=== PATIENT | female | born 1960 | race African-American/Black ===

== ENCOUNTER 2016-09-25 12:53 | Inpatient (IN) | payer OTHER ==
[2016-09-25 13:22] VITALS: BMI 28.3
--- NOTE | 2016-09-25 19:16 | HP ---
CIWA Score - CIWA Score Nausea/Vomitin Muscle Tremors: 3 Anxiety: 3 Agitation: 3 Paroxysmal Sweats: 2 Orientation: 1-Uncertain about Date Tacttile Disturbances: 2-Mild Itch/Numbness/Burn Auditory Disturbances: 2-Mild Harshness/Frighten Visual Disturbances: 2-Mild Sensitivity Headache: 2-Mild CIWA-Ar Total Score: 23 Admission ROS BHS - HPI Chief Complaint: i need help to stop drinking alcohol and cocaine Allergies/Adverse Reactions: Allergies Allergy/AdvReac Type Severity Reaction Status Date / Time peanut Allergy Severe Verified 04/21/12 23:34 tuberculin, purified protein Allergy Severe Swelling Verified 04/21/12 23:34 deriva [Tuberculin,Purif.Prot.Deriv.] No Known Drug Allergies Allergy Verified 04/22/12 11:08 History of Present Illness: this 55 years old female with alcohol and cocaine dependence,seeking detox,last treatment 2012 unknown location never been in detox before ptsd nicotine dependence type 2 dm Exam Limitations: No Limitations - Ebola screening Have you traveled outside of the country in the last 21 days: No Have you had contact with anyone from an Ebola affected area: No Have you been sick,other than usual withdrawal symptoms: No Do you have a fever: No - Review of Systems Constitutional: Loss of Appetite, Malaise, Night Sweats, Changes in sleep, Weakness, Unintentional Wgt. Loss EENT: reports: Nose Congestion Respiratory: reports: No Symptoms reported Cardiac: reports: No Symptoms Reported GI: reports: Diarrhea, Nausea, Vomiting, Abdominal cramping : reports: No Symptoms Reported Musculoskeletal: reports: Back Pain, Joint Pain Integumentary: reports: Dryness Neuro: reports: Headache, Tremors Endocrine: reports: No Symptoms Reported Hematology: reports: Other (hiv) Psychiatric: reports: Anxious, Depressed, other (ptsd) Patient History - Patient Medical History Hx Anemia: No Hx Asthma: No Hx Chronic Obstructive Pulmonary Disease (COPD): No Hx Cancer: No Hx Cardiac Disorders: No Hx Congestive Heart Failure: No Hx Hypertension: No Hx Hypercholesterolemia: No Hx Pacemaker: No HX Cerebrovascular Accident: No Hx Seizures: No Hx Dementia: No Hx Diabetes: No Hx Gastrointestinal Disorders: No Hx Liver Disease: No Hx Genitourinary Disorders: No Hx Sexually Transmitted Disorders: No Hx Renal Disease (ESRD): No Hx Thyroid Disease: No Hx Human Immunodeficiency Virus (HIV): Yes (truvada/d,isentress 400mg bid since 2000) Hx Hepatitis C: Yes Hx Depression: Yes (anxiety) Hx Suicide Attempt: No Hx Bipolar Disorder: No Hx Schizophrenia: No Other Medical History: ptsd,no suicidal,no homicidal - Patient Surgical History Past Surgical History: Yes Hx Neurologic Surgery: No Hx Cataract Extraction: No Hx Cardiac Surgery: No Hx Lung Surgery: No Hx Breast Surgery: No Hx Breast Biopsy: No Hx Abdominal Surgery: No Hx Appendectomy: No Hx Cholecystectomy: No Hx Genitourinary Surgery: No Hx Section: Yes (last 1994) Anesthesia Reaction: No - PPD History Previous Implant?: Yes Documented Results: Negative w/o proof Implanted On Prior R Admission?: No PPD to be Administered?: Yes - Reproductive History Patient is a Female of Child Bearing Age (11 -55 yrs old): Yes Patient : No - Smoking Cessation Smoking history: Current every day smoker Aproximately how many cigarettes per day: 3 Hx Chewing Tobacco Use: No Initiated information on smoking cessation: Yes 'Breaking Loose' booklet given: 09/25/16 - Substance & Tx. History Hx Alcohol Use: Yes Hx Substance Use: Yes Substance Use Type: Alcohol, Cocaine Hx Substance Use Treatment: Yes (2013 acility unknown) - Substances Abused Crack Route: Smoking Frequency: 1-3 times last 30 days Amount used: $300 Age of first use: 21 Date of Last Use: 09/23/16 Alcohol-beer Route: Oral Frequency: 3-6 times per week Amount used: 1 case Age of first use: 12 Date of Last Use: 09/24/16 Family Disease History - Family Disease History Family History: Denies Admission Physical Exam [facility] - Vital Signs Vital Signs: Vital Signs - 24 hr 09/25/16 13:14 Temperature 96.4 F L Pulse Rate 95 H Respiratory 20 Rate Blood Pressure 119/68 - Physical General Appearance: Yes: Moderate Distress, Tremorous, Irritable, Sweating, Anxious HEENTM: Yes: Normal ENT Inspection, KATIE, Pharynx Normal Respiratory: Yes: Lungs Clear, Normal Breath Sounds Neck: Yes: Within Normal Limits, Supple, Trachea in good position Breast: Yes: Breast Exam Deferred Cardiology: Yes: Regular Rhythm, Regular Rate, S1, S2, Edema Abdominal: Yes: Within Normal Limits, Normal Bowel Sounds, Non Tender, Soft Genitourinary: Yes: Within Normal Limits Back: Yes: Within Normal Limits, Normal Inspection, Muscle Spasm Musculoskeletal: Yes: full range of Motion, Back pain, Muscle Pain Extremities: Yes: Normal Range of Motion, Tremors Neurological: Yes: Within Normal Limits, basketball player II-XII NML intact, Fully Oriented, Alert, Motor Strength 5/5 Integumentary: Yes: Dry Lymphatic: Yes: Within Normal Limits - Diagnostic (1) Alcohol dependence with uncomplicated withdrawal Current Visit: Yes Status: Acute (2) Cocaine dependence Current Visit: No Status: Active (3) Human immunodeficiency virus infection Current Visit: No Status: Active (4) Nicotine dependence Current Visit: Yes Status: Acute (5) PTSD (post-traumatic stress disorder) Current Visit: Yes Status: Acute (6) Bipolar disorder Current Visit: Yes Status: Acute (7) Weight loss Current Visit: Yes Status: Acute (8) IDDM (insulin dependent diabetes mellitus) Current Visit: Yes Status: Acute Cleared for Admission S - Detox or Rehab [facility] Level of Care: Medically Managed Detox Regimen/Protocol: Librium [facility] Breath Alcohol Content Breath Alcohol Content: 0 Urine Pregancy Test - Result Urine Test Results: Negative- NO Line Present Urine Drug Screen - Results Drug Screen Negative: No Urine Drug Screen Results: SYL-Cocaine
[2016-09-25] MEDS ORDERED: hydrOXYzine PAMOATE 25 MG CAPSULE (FP) PO PRN (19:36)
[2016-09-25] MEDS ORDERED: ACETAMINOPHEN 325 MG TABLET (FP) PO PRN (19:36)
[2016-09-25] MEDS ORDERED: MENTHOL/PHENOL 1 EACH UD MM PRN (19:36)
[2016-09-25] MEDS ORDERED: LOPERAMIDE HCL 2 MG CAPSULE PO PRN (19:36)
[2016-09-25] MEDS ORDERED: MAGNESIUM HYDROX 2400MG/30ML ORAL SUSPENSION 30 ML CUP PO PRN (19:36)
[2016-09-25] MEDS ORDERED: MAG HYDROX/AL HYDROX/SIMETH 30 ML UNIT-DOSE CUP PO PRN (19:36)
[2016-09-25] MEDS ORDERED: IBUPROFEN 400 MG TABLET (FP) PO PRN (19:36)
[2016-09-25] MEDS ORDERED: chlordiazePOXIDE HCL 25 MG CAPSULE PO ONE (19:36)
[2016-09-25] MEDS ORDERED: guaiFENesin/D-METHORPHAN HB 10 ML UNIT-DOSE CUPS PO PRN (19:36)
[2016-09-25] MEDS ORDERED: diphenhydrAMINE HCL 50 MG CAPSULE PO PRN (19:36)
[2016-09-25] MEDS ORDERED: chlordiazePOXIDE HCL 25 MG CAPSULE PO PRN (19:36)
[2016-09-25] MEDS ORDERED: MAGNESIUM CITRATE 300 ML BOTTLE PO PRN (19:36)
[2016-09-25] MEDS ORDERED: P-EPHED 60MG/TRIPROLIDI 2.5MG TABLET PO PRN (19:36)
[2016-09-25] MEDS: INSULIN (NOVOLOG) ASPART 100 UNITS/ML 10ML VIAL SQ SCH (21:33)
[2016-09-25] MEDS: THIAMINE HCL 100 MG TABLET (FP) PO SCH (22:04)
[2016-09-25] MEDS: RALTEGRAVIR POTASSIUM 400 MG TAB PO SCH (22:04)
[2016-09-25] MEDS: chlordiazePOXIDE HCL 25 MG CAPSULE PO SCH (22:04)
[2016-09-25 23:03] LABS: URINE APPEARANCE SLCLOUDY; URINE BILIRUBIN NEGATIVE (NEGATIVE); URINE BLOOD NEGATIVE (NEGATIVE); URINE COLOR YELLOW; URINE GLUCOSE (UA) NEGATIVE (NEGATIVE); URINE KETONE TRACE (NEGATIVE); URINE LEUK ESTERASE NEGATIVE (NEGATIVE); URINE NITRITE NEGATIVE (NEGATIVE); URINE PROTEIN NEGATIVE (NEGATIVE); URINE UROBILINOGEN NEGATIVE mg/dL (0.2-1.0)
[2016-09-26] MEDS: chlordiazePOXIDE HCL 25 MG CAPSULE PO SCH ×4 (06:37→22:07)
[2016-09-26] MEDS: INSULIN (NOVOLOG) ASPART 100 UNITS/ML 10ML VIAL SQ SCH ×3 (07:51→17:00)
[2016-09-26 10:01] LABS: ALBUMIN 3.2 g/dl (3.4-5.0); ANION GAP 8 (8-16); CALCIUM 9.5 mg/dL (8.5-10.1); CO2 25 mmol/L (21-32); CREATININE 0.9 mg/dL (0.55-1.02); GLUCOSE,RANDOM 117 mg/dL (74-106); SGOT/AST 37 U/L (15-37); SGPT/ALT 47 U/L (12-78)
[2016-09-26 10:03] LABS: ALK PHOS 99 U/L (45-117); BILIRUBIN,TOTAL 0.4 mg/dL (0.2-1.0); TOT PROT 6.6 g/dl (6.4-8.2)
[2016-09-26 10:04] LABS: MCH 32.6 pg (25.7-33.7); MCHC 33.6 g/dl (32.0-36.0); MEAN PLT VOLUME 9.4 fl (7.5-11.1); PLATELET COUNT 243 K/MM3 (134-434); RDW 13.4 % (11.6-15.6)
[2016-09-26] MEDS: RALTEGRAVIR POTASSIUM 400 MG TAB PO SCH ×2 (10:47→22:06)
[2016-09-26] MEDS: PRENATAL VITAMINS W/ FOLIC ACID TABLET (FP) PO SCH (10:47)
[2016-09-26] MEDS: EMTRICITABINE 200MG/TENOFOVIR 300MG PO SCH (10:48)
--- NOTE | 2016-09-26 10:50 | PN ---
S CIWA - CIWA Score Nausea/Vomitin Muscle Tremors: 3 Anxiety: 3 Agitation: 2 Paroxysmal Sweats: 1-Minimal Palms Moist Orientation: 0-Oriented Tacttile Disturbances: 1-Very Mild Itch/Numbness Auditory Disturbances: 1-Very Mild Visual Disturbances: 1-Very Mild Sensitivity Headache: 2-Mild CIWA-Ar Total Score: 17 BHS Progress Note (SOAP) Subjective: ALERT,IRRITABLE,ANXIOUS,INTERRUPTED SLEEP,TREMOR,FEEL WEAK Objective: 09/26/16 10:48 Vital Signs Temperature 97.3 F L 09/26/16 06:19 Pulse Rate 69 09/26/16 06:19 Respiratory Rate 18 09/26/16 06:19 Blood Pressure 125/70 09/26/16 06:19 O2 Sat by Pulse Oximetry (%) 09/26/16 10:49 Assessment: 09/26/16 10:48 EKG NSR,NORMAL ECG 09/26/16 09/26/16 07:00 07:00 WBC 6.0 RBC 4.17 Hgb 13.6 Hct 40.4 MCV 97.0 H MCHC 33.6 RDW 13.4 Plt Count 243 Sodium 141 Potassium 4.1 Chloride 108 H Carbon Dioxide 25 Anion Gap 8 BUN 9 Creatinine 0.9 LABS PENDING 09/26/16 10:49 WITHDRAWAL SYMPTOM 09/26/16 10:49 Plan: CONTINUE DETOX
[2016-09-26] MEDS ORDERED: INSULIN (NOVOLOG) ASPART 100 UNITS/ML 10ML VIAL ONE (11:35)
--- NOTE | 2016-09-26 12:32 | CONSULT ---
[facility] Psychiatric Consult - Data Date of interview: 09/26/16 Admission source: [facility] Identifying data: First admission to [facility] for this 55 y/o AA female seeking detox treatment on for alcohol and cocaine dependence.Patient is single,a mother of three,domiciled (transitional housing),unemployed and supported on SSI benefits. Substance Abuse History: Discussed in this session.Patient confirms the following data : Smoking Cessation. Smoking history: Current every day smoker. Aproximately how many cigarettes per day: 3. Hx Chewing Tobacco Use: No. Initiated information on smoking cessation: Yes. 'Breaking Loose' booklet given: 09/25/16. - Substance & Tx. History. Hx Alcohol Use: Yes. Hx Substance Use: Yes. Substance Use Type: Alcohol, Cocaine. Hx Substance Use Treatment: Yes (2013 acility unknown). - Substances Abused. Crack. Route: Smoking. Frequency: 1-3 times last 30 days. Amount used: $300. Age of first use: 21. Date of Last Use: 09/23/16. Alcohol-beer. Route: Oral. Frequency : 3-6 times per week. Amount used: 1 case. Age of first use: 12. Date of Last Use: 09/24/16 Medical History: HIV infection since 2000 (on ART medications),hepatitis C and arthritis. Psychiatric History: Patient denies. Physical/Sexual Abuse/Trauma History: No reported history of abuse. Additional Comment: Urine Drug Screen Results: SYL-Cocaine.Noted. Mental Status Exam - Mental Status Exam Alert and Oriented to: Time, Place, Person Cognitive Function: Good Mood: Hopeful, Euthymic Affect: Normal Range Patient Behavior: Appropriate, Cooperative (overfriendly) Speech Pattern: Clear Voice Loudness: Normal Thought Process: Goal Oriented Thought Disorder: Not Present Hallucinations: Denies Suicidal Ideation: Denies Homicidal Ideation: Denies Insight/Judgement: Poor Sleep: Fair Appetite: Good Muscle strength/Tone: Normal Gait/Station: Other (walks with a stooped posture.Complains of pain in plantar areas) Psychiatric Findings - Problem List ([place] 1, 2,3) (1) Alcohol dependence with uncomplicated withdrawal Current Visit: Yes Status: Acute (2) Cocaine dependence Current Visit: Yes Status: Active (3) Nicotine dependence Current Visit: Yes Status: Acute (4) Substance induced mood disorder Current Visit: Yes Status: Acute (5) PTSD (post-traumatic stress disorder) Current Visit: No Status: Chronic Comment: History. (6) Bipolar disorder Current Visit: No Status: Chronic Comment: As per records. (7) IDDM (insulin dependent diabetes mellitus) Current Visit: Yes Status: Chronic (8) Human immunodeficiency virus infection Current Visit: Yes Status: Chronic - Initial Treatment Plan Initial Treatment Plan: Psychoeducation.Detoxification.Observation.
[2016-09-26] MEDS: THIAMINE HCL 100 MG TABLET (FP) PO SCH (22:06)
[2016-09-27] MEDS: chlordiazePOXIDE HCL 25 MG CAPSULE PO SCH ×3 (06:07→17:12)
[2016-09-27] MEDS: metFORMIN HCL 500 MG TABLET (FP) PO SCH ×2 (06:10→17:11)
--- NOTE | 2016-09-27 10:38 | PN ---
S CIWA - CIWA Score Nausea/Vomitin Muscle Tremors: 3 Anxiety: 3 Agitation: 2 Paroxysmal Sweats: No Perspiration Orientation: 0-Oriented Tacttile Disturbances: 1-Very Mild Itch/Numbness Auditory Disturbances: 1-Very Mild Visual Disturbances: 1-Very Mild Sensitivity Headache: 2-Mild CIWA-Ar Total Score: 16 S Progress Note (SOAP) Subjective: ALERT,IRRITABLE,ANXIOUS,INTERRUPTED SLEEP,TREMOR Objective: 09/27/16 10:36 Vital Signs Temperature 96.3 F L 09/27/16 06:05 Pulse Rate 69 09/27/16 06:05 Respiratory Rate 18 09/27/16 06:05 Blood Pressure 137/79 09/27/16 06:05 O2 Sat by Pulse Oximetry (%) Laboratory Last Values WBC 6.0 K/mm3 (4.0-10.0) 09/26/16 07:00 RBC 4.17 M/mm3 (3.60-5.2) 09/26/16 07:00 Hgb 13.6 GM/dL (10.7-15.3) 09/26/16 07:00 Hct 40.4 % (32.4-45.2) 09/26/16 07:00 MCV 97.0 fl (80-96) H 09/26/16 07:00 MCH 32.6 pg (25.7-33.7) 09/26/16 07:00 MCHC 33.6 g/dl (32.0-36.0) 09/26/16 07:00 RDW 13.4 % (11.6-15.6) 09/26/16 07:00 Plt Count 243 K/MM3 (134-434) 09/26/16 07:00 MPV 9.4 fl (7.5-11.1) 09/26/16 07:00 Sodium 141 mmol/L (136-145) 09/26/16 07:00 Potassium 4.1 mmol/L (3.5-5.1) 09/26/16 07:00 Chloride 108 mmol/L (98-107) H 09/26/16 07:00 Carbon Dioxide 25 mmol/L (21-32) 09/26/16 07:00 Anion Gap 8 (8-16) 09/26/16 07:00 BUN 9 mg/dL (7-18) 09/26/16 07:00 Creatinine 0.9 mg/dL (0.55-1.02) 09/26/16 07:00 Creat Clearance w eGFR > 60 (>60) 09/26/16 07:00 POC Glucometer 146 UNITS (()) 09/26/16 16:32 Random Glucose 117 mg/dL (74-106) H 09/26/16 07:00 Calcium 9.5 mg/dL (8.5-10.1) 09/26/16 07:00 Total Bilirubin 0.4 mg/dL (0.2-1.0) 09/26/16 07:00 AST 37 U/L (15-37) 09/26/16 07:00 ALT 47 U/L (12-78) 09/26/16 07:00 Alkaline Phosphatase 99 U/L (45-117) 09/26/16 07:00 Total Protein 6.6 g/dl (6.4-8.2) 09/26/16 07:00 Albumin 3.2 g/dl (3.4-5.0) L 09/26/16 07:00 Urine Color Yellow 09/25/16 22:50 Urine Appearance Slcloudy 09/25/16 22:50 Urine pH 5.0 (5.0-8.0) 09/25/16 22:50 Ur Specific [place] 1.025 (1.005-1.025) 09/25/16 22:50 Urine Protein Negative (NEGATIVE) 09/25/16 22:50 Urine Glucose (UA) Negative (NEGATIVE) 09/25/16 22:50 Urine Ketones Trace (NEGATIVE) H 09/25/16 22:50 Urine Blood Negative (NEGATIVE) 09/25/16 22:50 Urine Nitrite Negative (NEGATIVE) 09/25/16 22:50 Urine Bilirubin Negative (NEGATIVE) 09/25/16 22:50 Urine Urobilinogen Negative mg/dL (0.2-1.0) 09/25/16 22:50 Ur Leukocyte Esterase Negative (NEGATIVE) 09/25/16 22:50 RPR Titer Nonreactive (NONREACTIVE) 09/26/16 07:00 Assessment: 09/27/16 10:37 WITHDRAWAL SYMPTOM Plan: CONTINUE DETOX,BGM MONITORING,METFORMIN 500 MGS PO BID
[2016-09-27] MEDS: RALTEGRAVIR POTASSIUM 400 MG TAB PO SCH ×2 (10:55→22:03)
[2016-09-27] MEDS: EMTRICITABINE 200MG/TENOFOVIR 300MG PO SCH (10:55)
[2016-09-27] MEDS: PRENATAL VITAMINS W/ FOLIC ACID TABLET (FP) PO SCH (10:55)
[2016-09-27] MEDS: chlordiazePOXIDE 5 MG CAPSULE PO SCH (22:03)
[2016-09-27] MEDS: THIAMINE HCL 100 MG TABLET (FP) PO SCH (22:03)
[2016-09-28] MEDS: chlordiazePOXIDE 5 MG CAPSULE PO SCH ×3 (05:55→17:31)
[2016-09-28] MEDS: metFORMIN HCL 500 MG TABLET (FP) PO SCH ×2 (06:02→17:31)
--- NOTE | 2016-09-28 08:10 | EKG ---
Test Reason : Blood Pressure : / mmHG Vent. Rate : 066 BPM Atrial Rate : 066 BPM P-R Int : 154 ms QRS Dur : 072 ms QT Int : 424 ms P-R-T Axes : 063 050 042 degrees QTc Int : 444 ms NORMAL SINUS RHYTHM NORMAL ECG NO PREVIOUS ECGS AVAILABLE Confirmed by TRINY TREVIÑO, ANGEL LUIS ([id number]) on 09/28/2016 8:09:44 AM Referred By: Taran Burnham Confirmed By:ANGEL LUIS AGOSTO MD
[2016-09-28] MEDS: PRENATAL VITAMINS W/ FOLIC ACID TABLET (FP) PO SCH (10:08)
[2016-09-28] MEDS: RALTEGRAVIR POTASSIUM 400 MG TAB PO SCH (10:09)
[2016-09-28] MEDS: EMTRICITABINE 200MG/TENOFOVIR 300MG PO SCH (10:10)
--- NOTE | 2016-09-28 10:10 | PN ---
S Progress Note (SOAP) Subjective: ALERT,IRRITABLE,ANXIOUS,INTERRUPTED SLEEP Objective: 09/28/16 10:09 Vital Signs Temperature 97.9 F 09/28/16 06:22 Pulse Rate 66 09/28/16 06:22 Respiratory Rate 16 09/28/16 06:22 Blood Pressure 118/86 09/28/16 06:22 O2 Sat by Pulse Oximetry (%) Assessment: 09/28/16 10:09 WITHDRAWAL SYMPTOM Plan: CONTINUE DETOX,DISCHARGE IN AM
--- NOTE | 2016-09-28 10:30 | PN ---
[facility] Progress Note Note: PATIENT STATED SHE IS ON COMPLERA FOR HIV,WILL D/C ISENTRESS AND TRUVADA,TO GIVE COMPLERA DAILY
[2016-09-28] MEDS ORDERED: ONDANSETRON *ODT* 4 MG TABLET SL PRN (16:29)
[2016-09-28] MEDS: THIAMINE HCL 100 MG TABLET (FP) PO SCH (22:07)
[2016-09-28] MEDS: chlordiazePOXIDE HCL 10 MG CAPSULE PO SCH (23:31)
[2016-09-29] MEDS: chlordiazePOXIDE HCL 10 MG CAPSULE PO SCH ×2 (05:43→10:32)
[2016-09-29] MEDS: metFORMIN HCL 500 MG TABLET (FP) PO SCH (07:35)
[2016-09-29] MEDS ORDERED: EMTRICITAB/RILPIVIRINE/TENOFOV 1 EACH TABLET PO SCH (08:00)
--- NOTE | 2016-09-29 08:41 | DS ---
[facility] Detox Discharge Summary Admission Date: 09/25/16 Discharge Date: 09/29/16 - History Present History: Alcohol Dependence, Cocaine Dependence Additional Comments: follow up with after [facility] program as arrangement Pertinent Past History: hiv type 2 dm weight loss bipolar disorder nicotine dependence ptsd - Physical Exam Results Vital Signs: Vital Signs Temperature 97.7 F 09/29/16 06:22 Pulse Rate 75 09/29/16 06:22 Respiratory Rate 18 09/29/16 06:22 Blood Pressure 125/69 09/29/16 06:22 O2 Sat by Pulse Oximetry (%) Pertinent Admission Physical Exam Findings: withdrawal symptom - Treatment Hospital Course: Detox Protocol Followed, Detoxed Safely, Responded well, Discharged Condition Good, Rehab Referral Accepted Patient has Accepted a [facility] Referral [facility] - Medication Discharge Medications: Ambulatory Orders Emtricitabine/Tenofovir [Truvada Tablet] 1 each PO DAILY 04/21/12 Gabapentin [Neurontin] 100 mg PO DAILY 04/21/12 Insulin Glargine,Hum.rec.anlog [Lantus Solostar PEN] 0 units SQ HS 04/21/12 Raltegravir [Isentress] 400 mg PO BID 04/21/12 Trazodone HCl [Desyrel] 150 mg PO HS 04/21/12 Metformin HCl [Glucophage -] 500 mg PO BID 09/26/16 - Diagnosis (1) Alcohol dependence with uncomplicated withdrawal Current Visit: Yes Status: Acute (2) Cocaine dependence Current Visit: Yes Status: Active (3) Human immunodeficiency virus infection Current Visit: Yes Status: Chronic (4) Nicotine dependence Current Visit: Yes Status: Acute (5) PTSD (post-traumatic stress disorder) Current Visit: No Status: Chronic (6) Bipolar disorder Current Visit: No Status: Chronic (7) Weight loss Current Visit: Yes Status: Acute (8) DM2 (diabetes mellitus, type 2) Current Visit: Yes Status: Chronic - AMA Did Patient Leave Against Medical Advice: No
[2016-09-29 09:47] VITALS: BP 122/76; PULSE 83; TEMP 95.9
[2016-09-29] MEDS: PRENATAL VITAMINS W/ FOLIC ACID TABLET (FP) PO SCH (10:28)
== END 2016-09-29 12:25 | disposition other institution (70) | DRG 774 ==
LOC: YASAS 12:53 → Y6N 18:10
PROVIDERS: ADMIT Internal Medicine; ATTEND Internal Medicine
PROC: HZ2ZZZZ Detoxification Services for Substance Abuse Treatment (ICD-10-PCS; principal; 2016-09-25)
DX: F10.230 Alcohol dependence with withdrawal, uncomplicated (principal); F14.20 Cocaine dependence, uncomplicated; F17.210 Nicotine dependence, cigarettes, uncomplicated; F43.10 Post-traumatic stress disorder, unspecified; F31.9 Bipolar disorder, unspecified; Z21 Asymptomatic human immunodeficiency virus [HIV] infection status; E11.9 Type 2 diabetes mellitus without complications; Z87.898 Personal history of other specified conditions; Z79.4 Long term (current) use of insulin; Z79.84 Long term (current) use of oral hypoglycemic drugs; Z91.010 Allergy to peanuts; Z91.018 Allergy to other foods
CPT/HCPCS: 36415; 71020-TC; 80053; 81003; 85027; 86593; 93005; 93010

== ENCOUNTER 2016-09-29 12:25 | Inpatient (IN) | payer OTHER ==
[2016-09-29 13:26] VITALS: BMI 29.2
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
[2016-09-29] MEDS ORDERED: NICOTINE POLACRILEX 2 MG GUM BUC PRN (15:44)
[2016-09-29] MEDS ORDERED: IBUPROFEN 400 MG TABLET (FP) PO PRN (15:44)
[2016-09-29] MEDS ORDERED: ACETAMINOPHEN 325 MG TABLET (FP) PO PRN (15:44)
[2016-09-29] MEDS ORDERED: diphenhydrAMINE HCL 50 MG CAPSULE PO PRN (15:44)
[2016-09-29] MEDS ORDERED: MENTHOL/PHENOL 1 EACH UD MM PRN (15:44)
[2016-09-29] MEDS ORDERED: MAGNESIUM HYDROX 2400MG/30ML ORAL SUSPENSION 30 ML CUP PO PRN (15:44)
[2016-09-29] MEDS ORDERED: MAG HYDROX/AL HYDROX/SIMETH 30 ML UNIT-DOSE CUP PO PRN (15:44)
[2016-09-29] MEDS ORDERED: guaiFENesin/D-METHORPHAN HB 10 ML UNIT-DOSE CUPS PO PRN (15:44)
[2016-09-29] MEDS ORDERED: P-EPHED 60MG/TRIPROLIDI 2.5MG TABLET PO PRN (15:44)
[2016-09-29] MEDS ORDERED: LOPERAMIDE HCL 2 MG CAPSULE PO PRN (15:44)
[2016-09-29] MEDS ORDERED: MAGNESIUM CITRATE 300 ML BOTTLE PO PRN (15:44)
--- NOTE | 2016-09-29 15:47 | HP ---
[facility] Rehab Assess/Revision - Admission History Admitted to Rehab [facility] Date of Admission to Rehab: 09/29/16 - Vital signs Vital Signs: Vital Signs Period Temp Pulse Resp BP Sys/Reza Pulse Ox Last 24 Hr 97.8 F-97.8 F 80-80 18-18 127-127/83-83 - Findings Detox History & Physical reviewed: Yes Concur with findings: Yes
[2016-09-29] MEDS: THIAMINE HCL 100 MG TABLET (FP) PO SCH (21:24)
[2016-09-30] MEDS: metFORMIN HCL 500 MG TABLET (FP) PO SCH ×2 (06:21→17:10)
[2016-09-30] MEDS: EMTRICITAB/RILPIVIRINE/TENOFOV 1 EACH TABLET PO SCH (10:55)
[2016-09-30] MEDS: PRENATAL VITAMINS W/ FOLIC ACID TABLET (FP) PO SCH (10:55)
[2016-09-30] MEDS: THIAMINE HCL 100 MG TABLET (FP) PO SCH (22:40)
[2016-10-01] MEDS: metFORMIN HCL 500 MG TABLET (FP) PO SCH ×2 (06:36→17:02)
[2016-10-01] MEDS: EMTRICITAB/RILPIVIRINE/TENOFOV 1 EACH TABLET PO SCH (07:43)
[2016-10-01] MEDS: PRENATAL VITAMINS W/ FOLIC ACID TABLET (FP) PO SCH (10:19)
[2016-10-01] MEDS: THIAMINE HCL 100 MG TABLET (FP) PO SCH (21:29)
[2016-10-02] MEDS: metFORMIN HCL 500 MG TABLET (FP) PO SCH ×2 (06:32→16:58)
[2016-10-02] MEDS: EMTRICITAB/RILPIVIRINE/TENOFOV 1 EACH TABLET PO SCH (07:36)
[2016-10-02] MEDS: PRENATAL VITAMINS W/ FOLIC ACID TABLET (FP) PO SCH (10:15)
[2016-10-02] MEDS: THIAMINE HCL 100 MG TABLET (FP) PO SCH (21:25)
[2016-10-03] MEDS ORDERED: PT OWN MED DRAWER 7, Y5N ONE ×2 (05:51→08:48)
[2016-10-03] MEDS: metFORMIN HCL 500 MG TABLET (FP) PO SCH ×2 (06:39→16:35)
[2016-10-03] MEDS: EMTRICITAB/RILPIVIRINE/TENOFOV 1 EACH TABLET PO SCH (07:09)
[2016-10-03] MEDS: PRENATAL VITAMINS W/ FOLIC ACID TABLET (FP) PO SCH (10:19)
[2016-10-03] MEDS: THIAMINE HCL 100 MG TABLET (FP) PO SCH (21:39)
[2016-10-04] MEDS: metFORMIN HCL 500 MG TABLET (FP) PO SCH ×2 (06:14→17:02)
[2016-10-04] MEDS: EMTRICITAB/RILPIVIRINE/TENOFOV 1 EACH TABLET PO SCH (07:41)
[2016-10-04] MEDS: PRENATAL VITAMINS W/ FOLIC ACID TABLET (FP) PO SCH (09:33)
[2016-10-04] MEDS ORDERED: LIDOCAINE VISCOUS 2% ORAL/TOP 20 ML UNIT-DOSE CUP MM PRN (10:55)
[2016-10-04] MEDS ORDERED: IBUPROFEN 400 MG TABLET (FP) PO PRN (10:55)
[2016-10-04] MEDS: THIAMINE HCL 100 MG TABLET (FP) PO SCH (21:25)
[2016-10-05] MEDS: metFORMIN HCL 500 MG TABLET (FP) PO SCH ×2 (06:39→16:51)
[2016-10-05] MEDS: EMTRICITAB/RILPIVIRINE/TENOFOV 1 EACH TABLET PO SCH (07:39)
[2016-10-05] MEDS: PRENATAL VITAMINS W/ FOLIC ACID TABLET (FP) PO SCH (09:10)
[2016-10-05] MEDS: THIAMINE HCL 100 MG TABLET (FP) PO SCH (21:31)
[2016-10-06] MEDS: metFORMIN HCL 500 MG TABLET (FP) PO SCH ×2 (06:43→17:07)
[2016-10-06] MEDS: EMTRICITAB/RILPIVIRINE/TENOFOV 1 EACH TABLET PO SCH (07:23)
[2016-10-06] MEDS: PRENATAL VITAMINS W/ FOLIC ACID TABLET (FP) PO SCH (10:54)
[2016-10-06] MEDS: THIAMINE HCL 100 MG TABLET (FP) PO SCH (21:35)
--- NOTE | 2016-10-06 22:41 | PN ---
S Progress Note Note: BGM 294,NON COMPLIANT,WILL DO FASTING GLUCOSE IN AM,HBA1C,MANAGER STATISTICS CONSULTATION , CONTINUE METFORMIN 500 MGS PO BID
[2016-10-07] MEDS: metFORMIN HCL 500 MG TABLET (FP) PO SCH ×2 (07:02→17:11)
[2016-10-07] MEDS: EMTRICITAB/RILPIVIRINE/TENOFOV 1 EACH TABLET PO SCH (07:02)
[2016-10-07] MEDS ORDERED: PT OWN MED DRAWER 7, Y5N ONE ×2 (07:11→08:56)
[2016-10-07] MEDS: PRENATAL VITAMINS W/ FOLIC ACID TABLET (FP) PO SCH (10:09)
[2016-10-07] MEDS: THIAMINE HCL 100 MG TABLET (FP) PO SCH (21:39)
[2016-10-08] MEDS: metFORMIN HCL 500 MG TABLET (FP) PO SCH ×2 (06:28→17:04)
[2016-10-08] MEDS ORDERED: PT OWN MED DRAWER 7, Y5N ONE (07:36)
[2016-10-08] MEDS: EMTRICITAB/RILPIVIRINE/TENOFOV 1 EACH TABLET PO SCH (07:39)
[2016-10-08] MEDS: PRENATAL VITAMINS W/ FOLIC ACID TABLET (FP) PO SCH (09:58)
[2016-10-08] MEDS: THIAMINE HCL 100 MG TABLET (FP) PO SCH (21:39)
[2016-10-09] MEDS: metFORMIN HCL 500 MG TABLET (FP) PO SCH ×2 (06:18→17:21)
[2016-10-09] MEDS: EMTRICITAB/RILPIVIRINE/TENOFOV 1 EACH TABLET PO SCH (07:24)
[2016-10-09] MEDS: PRENATAL VITAMINS W/ FOLIC ACID TABLET (FP) PO SCH (09:45)
[2016-10-09] MEDS: THIAMINE HCL 100 MG TABLET (FP) PO SCH (21:34)
[2016-10-10] MEDS ORDERED: PT OWN MED DRAWER 7, Y5N ONE (03:31)
[2016-10-10] MEDS: metFORMIN HCL 500 MG TABLET (FP) PO SCH ×2 (06:21→16:30)
[2016-10-10] MEDS: EMTRICITAB/RILPIVIRINE/TENOFOV 1 EACH TABLET PO SCH (07:46)
[2016-10-10] MEDS: PRENATAL VITAMINS W/ FOLIC ACID TABLET (FP) PO SCH (10:03)
[2016-10-10] MEDS: THIAMINE HCL 100 MG TABLET (FP) PO SCH (21:54)
[2016-10-11] MEDS ORDERED: PT OWN MED DRAWER 7, Y5N ONE ×2 (05:46→07:03)
[2016-10-11] MEDS: metFORMIN HCL 500 MG TABLET (FP) PO SCH ×2 (06:30→17:02)
[2016-10-11] MEDS: EMTRICITAB/RILPIVIRINE/TENOFOV 1 EACH TABLET PO SCH (07:02)
[2016-10-11] MEDS: PRENATAL VITAMINS W/ FOLIC ACID TABLET (FP) PO SCH (10:31)
[2016-10-11] MEDS: THIAMINE HCL 100 MG TABLET (FP) PO SCH (21:43)
[2016-10-12] MEDS: metFORMIN HCL 500 MG TABLET (FP) PO SCH ×2 (06:07→16:41)
[2016-10-12 07:20] VITALS: BP 118/80; PULSE 75; TEMP 97.5
[2016-10-12] MEDS: EMTRICITAB/RILPIVIRINE/TENOFOV 1 EACH TABLET PO SCH (07:48)
[2016-10-12] MEDS: PRENATAL VITAMINS W/ FOLIC ACID TABLET (FP) PO SCH (10:20)
== END 2016-10-12 22:45 | disposition home or self-care (01) | DRG 772 ==
LOC: YASAS 12:25 → Y3E 12:26
PROVIDERS: ADMIT Psychiatry & Neurology Psychiatry; ATTEND Psychiatry & Neurology Psychiatry
PROC: HZ42ZZZ Group Counseling for Substance Abuse Treatment, Cognitive-Behavioral (ICD-10-PCS; principal; 2016-09-29)
DX: F10.20 Alcohol dependence, uncomplicated (principal); F14.20 Cocaine dependence, uncomplicated; F12.20 Cannabis dependence, uncomplicated; F17.210 Nicotine dependence, cigarettes, uncomplicated; F19.24 Other psychoactive substance dependence with psychoactive substance-induced mood disorder; E11.9 Type 2 diabetes mellitus without complications; Z21 Asymptomatic human immunodeficiency virus [HIV] infection status; G62.9 Polyneuropathy, unspecified; B18.2 Chronic viral hepatitis C; Z79.84 Long term (current) use of oral hypoglycemic drugs; Z91.14 Patient's other noncompliance with medication regimen; Z91.010 Allergy to peanuts
CPT/HCPCS: 36415; 82947; 83036

== ENCOUNTER 2019-03-30 17:15 | Inpatient (IN) | payer OTHER ==
[2019-03-30 19:53] VITALS: BMI 30.9
--- NOTE | 2019-03-30 20:36 | HP ---
CIWA Score - Admission Criteria [facility] Guidelines: Admission for Medically Managed Detox: Requires at least one of the followin. CIWA greater than 12 2. Seizures within the past 24 hours 3. Delirium tremens within the past 24 hours 4. Hallucinations within the past 24 hours 5. Acute intervention needed for co occurring medical disorder 6. Acute intervention needed for co occurring psychiatric disorder 7. Severe withdrawal that cannot be handled at a lower level of care (continued vomiting, continued diarrhea, abnormal vital signs) requiring intravenous medication and/or fluids 8. Admitting History and Physical - Past Medical History ...LMP: 06/29/96 - Smoking History Smoking history: Current every day smoker Aproximately how many cigarettes per day: 3 - Alcohol/Substance Use Hx Alcohol Use: Yes (reports drinking since 12 yo,3-6 times a week) Admission [facility] Chief Complaint: SEEKING REHAB FOR ALCOHOL Allergies/Adverse Reactions: Allergies Allergy/AdvReac Type Severity Reaction Status Date / Time peanut Allergy Severe Verified 03/30/19 19:46 No Known Drug Allergies Allergy Verified 03/30/19 19:46 History of Present Illness: HERE FOR ALCOHOL/COCAINE REHAB. CLIENT IS REFERRED BY [facility] AFTER BEING EVALUATED FOR FEELING DEPRESSED. SHE WAS CLEARED AND REFERRED. STATES HAS NOT USED ALCOHOL IN THE PAST 4 DAYS. DENIES WITHDRAWAL SX'S TO INCLUDE SHAKES, SWEATS. 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 DENIES HX/O BLACKOUTS, AND SZ D/O, AVH, SI/HI. PREVIOUS TO THE PAST 4 DAYS SHE HAS BEEN DRINKING ALCOHOL DAILY. AND ABUSES COCAINE. HX/ O IVDU BUT PRESENTLY DENIES. DENIES ANY SIGNIFICANT PERIOD CLEAN TIME IN THE PAST 1 YEAR. UTOX NEG FOR ALL SUBSTANCES TESTED. HOMELESS, UNEMPLOYED, DENIES LEGALS Exam Limitations: Physical Impairment ([place] WITH ASSIST OF CANE) - Ebola screening Have you traveled outside of the country in the last 21 days: No Have you had contact with anyone from an Ebola affected area: No Have you been sick,other than usual withdrawal symptoms: No Do you have a fever: No - Review of Systems Constitutional: No Symptoms Reported EENT: reports: Other (GLASSES) Respiratory: reports: No Symptoms reported Cardiac: reports: No Symptoms Reported GI: reports: Constipated (LAST BM TODAY) : reports: No Symptoms Reported Musculoskeletal: reports: Other (AMBULATES WITH CANE 2/2 TO PAINFUL FEET) Integumentary: reports: No Symptoms Reported Neuro: reports: Numbness, Unsteady Gait (AMBULATES WITH CANE) Endocrine: reports: Other (HX/O DM) Hematology: reports: No Symptoms Reported Psychiatric: reports: Orientated x3, Agitated, Anxious, Depressed Other Systems: Reviewed and Negative Patient History - Patient Medical History Hx Anemia: No Hx Asthma: No Hx Chronic Obstructive Pulmonary Disease (COPD): No Hx Cancer: No Hx Cardiac Disorders: No Hx Congestive Heart Failure: No Hx Hypertension: Yes (NON COMPLIANT) Hx Hypercholesterolemia: No Hx Pacemaker: No HX Cerebrovascular Accident: No Hx Seizures: No Hx Dementia: No Hx Diabetes: Yes (NON COMPLIANT) Hx Gastrointestinal Disorders: No Hx Liver Disease: No Hx Genitourinary Disorders: No Hx Sexually Transmitted Disorders: Yes (HIV since 2000) Hx Renal Disease (ESRD): No Hx Thyroid Disease: No Hx Human Immunodeficiency Virus (HIV): Yes (NOT COMPLIANT) Hx Hepatitis C: Yes Hx Depression: Yes Hx Suicide Attempt: No Hx Bipolar Disorder: No Hx Schizophrenia: No Other Medical History: NEURPATHY - Patient Surgical History Past Surgical History: Yes Hx Neurologic Surgery: No Hx Cataract Extraction: No Hx Cardiac Surgery: No Hx Lung Surgery: No Hx Breast Surgery: No Hx Breast Biopsy: No Hx Abdominal Surgery: No Hx Appendectomy: No Hx Cholecystectomy: No Hx Genitourinary Surgery: No Hx Section: Yes (last 1994) Anesthesia Reaction: No - PPD History Previous Implant?: Yes Documented Results: Negative w/o proof Implanted On Prior R Admission?: No PPD to be Administered?: Yes - Reproductive History Patient is a Female of Child Bearing Age (11 -55 yrs old): No Last Menstrual Period: 06/29/96 Patient : No ([place] [facility] - Smoking Cessation Smoking history: Current every day smoker Aproximately how many cigarettes per day: 3 Cigars Per Day: 0 Hx Chewing Tobacco Use: No Initiated information on smoking cessation: Yes 'Breaking Loose' booklet given: 03/30/19 - Substance & Tx. History Hx Alcohol Use: Yes Hx Substance Use: Yes Substance Use Type: Alcohol, Cocaine Hx Substance Use Treatment: Yes ([facility]) - Substances abused Alcohol Substance route: Oral Frequency: Daily Amount used: 1CASE BEER Age of first use: 12 Date of last use: 03/27/19 Cocaine Substance route: Smoking Frequency: Daily Amount used: $200 Age of first use: 25 Date of last use: 03/27/19 Admission Physical Exam [facility] - Vital Signs Vital Signs: Vital Signs - 24 hr 03/30/19 19:43 Temperature 98.2 F Pulse Rate 86 Respiratory 18 Rate Blood Pressure 133/80 - Physical General Appearance: Yes: No Apparent Distress HEENTM: Yes: EOMI, Normocephalic, Normal Voice, KATIE, Pharynx Normal, Other ( MISSING TOP TEETH) Respiratory: Yes: Chest Non-Tender, Lungs Clear, Normal Breath Sounds, No Respiratory Distress, No Accessory Muscle Use Neck: Yes: No masses,lesions,Nodules, Supple, Trachea in good position Breast: Yes: Breasts Symetrical Cardiology: Yes: Regular Rhythm, Regular Rate, S1, S2 Abdominal: Yes: Normal Bowel Sounds, Non Tender, Soft, Protuberent Genitourinary: Yes: Within Normal Limits Back: Yes: Normal Inspection Musculoskeletal: Yes: full range of Motion, Gait Steady Extremities: Yes: Normal Capillary Refill, Normal Range of Motion, Non-Tender Neurological: Yes: Fully Oriented, Alert, Motor Strength 5/5, Normal Mood/Affect Integumentary: Yes: Dry, Warm Lymphatic: Yes: Within Normal Limits - Diagnostic (1) Alcohol dependence, uncomplicated Current Visit: Yes Status: Acute (2) HTN (hypertension) Current Visit: Yes Status: Acute (3) Homeless Current Visit: Yes Status: Acute (4) Non compliance w medication regimen Current Visit: Yes Status: Acute (5) HIV (human immunodeficiency virus infection) Current Visit: Yes Status: Acute (6) DM2 (diabetes mellitus, type 2) Current Visit: Yes Status: Chronic (7) Cocaine dependence Current Visit: Yes Status: Suspected (8) Nicotine dependence Current Visit: Yes Status: Chronic Qualifiers: Nicotine product type: cigarettes Substance use status: uncomplicated Qualified Code(s): F17.210 - Nicotine dependence, cigarettes, uncomplicated (9) Substance induced mood disorder Current Visit: Yes Status: Suspected Cleared for Admission [facility] - Detox or Rehab Detox Regimen/Protocol: Not Applicable Claeared for Rehab Admission: Yes Breathalyzer - Breathalyzer Breathalyzer: 0 Urine Drug Screen - Test Device Lot number: [id number] Expiration date: 01/22/21 - Control Is test valid?: Yes - Results Drug screen NEGATIVE: Yes Inpatient Rehab Admission - Rehab Decision to Admit Inpatient rehab admission?: Yes - Initial Determination Are CD services needed?: Yes Free of communicable disease: No Not in need of hospitalization: Yes - Rehab Admission Criteria Previous failed treatment: Yes Poor recovery environment: Yes Comorbidities: Yes Lacks judgement: No Patient is meeting Inpatient Rehab admission criteria:: Yes
[2019-03-30] MEDS ORDERED: MAG HYDROX/AL HYDROX/SIMETH 30 ML UNIT-DOSE CUP PO PRN (20:49)
[2019-03-30] MEDS ORDERED: MAGNESIUM CITRATE 300 ML BOTTLE PO PRN (20:49)
[2019-03-30] MEDS ORDERED: guaiFENesin 200 MG/10 ML 10 ML UNIT-DOSE CUPS PO PRN (20:49)
[2019-03-30] MEDS ORDERED: P-EPHED 60MG/TRIPROLIDI 2.5MG TABLET PO PRN (20:49)
[2019-03-30] MEDS ORDERED: LOPERAMIDE HCL 2 MG CAPSULE PO PRN (20:49)
[2019-03-30] MEDS ORDERED: NICOTINE POLACRILEX 2 MG GUM BC PRN (20:49)
[2019-03-30] MEDS ORDERED: MAGNESIUM HYDROX 2400MG/30ML ORAL SUSPENSION 30 ML CUP PO PRN (20:49)
[2019-03-30] MEDS: THIAMINE HCL 100 MG TABLET (FP) PO SCH (23:25)
[2019-03-31 10:05] LABS: EPI CELLS 17.6 /HPF (0-5/HPF); HYALINE CASTS 3 /lpf (0-8); PH,URINE 7.5 (5.0-8.0); URINE APPEARANCE CLOUDY; URINE BACTERIA 146.1 /hpf (NEGATIVE); URINE BILIRUBIN NEGATIVE (NEGATIVE); URINE COLOR YELLOW; URINE GLUCOSE (UA) NEGATIVE (NEGATIVE); URINE KETONE NEGATIVE (NEGATIVE); URINE LEUK ESTERASE 3+ (NEGATIVE); URINE NITRITE NEGATIVE (NEGATIVE); URINE PROTEIN NEGATIVE (NEGATIVE); URINE RBC 1 /hpf (0-4); URINE WBC 11 /hpf (0-5)
[2019-03-31] MEDS: PRENATAL VITAMINS W/ FOLIC ACID TABLET (FP) PO SCH (10:33)
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
[2019-03-31 12:20] LABS: HEMATOCRIT 37.7 % (32.4-45.2); HEMOGLOBIN 12.7 GM/dL (10.7-15.3); MCH 31.5 pg (25.7-33.7); MCHC 33.6 g/dl (32.0-36.0); MEAN PLT VOLUME 9.2 fl (7.5-11.1); PLATELET COUNT 228 K/MM3 (134-434); RBC 4.01 M/mm3 (3.60-5.2); RDW 13.2 % (11.6-15.6); WHITE BLOOD COUNT 5.4 K/mm3 (4.0-10.0)
[2019-03-31 12:51] LABS: ALBUMIN 3.8 g/dl (3.4-5.0); BILIRUBIN,TOTAL 0.6 mg/dL (0.2-1); BLOOD UREA NITROGEN 17.2 mg/dL (7-18); CALCIUM 9.3 mg/dL (8.5-10.1); POTASSIUM 4.2 mmol/L (3.5-5.1); TOT PROT 7.6 g/dl (6.4-8.2)
--- NOTE | 2019-03-31 14:30 | EKG ---
Test Reason : Blood Pressure : / mmHG Vent. Rate : 067 BPM Atrial Rate : 067 BPM P-R Int : 160 ms QRS Dur : 078 ms QT Int : 406 ms P-R-T Axes : 058 052 036 degrees QTc Int : 429 ms NORMAL SINUS RHYTHM NORMAL ECG WHEN COMPARED WITH ECG OF 25-SEP-2016 18:40, NO SIGNIFICANT CHANGE WAS FOUND Confirmed by FANTASMA DOMINGUEZ MD ([id number]) on 03/31/2019 2:29:57 PM Referred By: Confirmed By:FANTASMA DOMINGUEZ MD
--- NOTE | 2019-03-31 14:32 | PN ---
[facility] Progress Note Note: patient has lisinopril and Complera in her home medications. I talked to the patient about her Complera, she has not taken it in ~6 months. I explained that because she has not taken it for so long, she needs to see her provider because she needs to be re-assessed. Patient understood and agreed. Lisinopril 2.5mg was ordered.
--- NOTE | 2019-03-31 14:35 | PN ---
[facility] Progress Note (SOAP) Subjective: Patient admitted to [facility] for ETOH and cocaine rehab PMHx: REFERRED BY [facility] AFTER BEING EVALUATED FOR FEELING DEPRESSED.STATES HAS NOT USED ALCOHOL IN THE PAST 4 DAYS. DENIES WITHDRAWAL SX' S TO INCLUDE SHAKES, SWEATS. 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 DENIES HX/O BLACKOUTS, AND SZ D/O, AVH, SI/HI. SHE HAS BEEN DRINKING ALCOHOL DAILY AND ABUSES COCAINE. HX/O IVDU BUT PRESENTLY DENIES. DENIES ANY SIGNIFICANT PERIOD CLEAN TIME IN THE PAST 1 YEAR. UTOX NEG FOR ALL SUBSTANCES TESTED. HOMELESS, UNEMPLOYED, DENIES LEGALS Objective: Physical General Appearance: No Apparent Distress HEENTM: Normocephalic, Respiratory: Lungs Clear, Neck: Yes: No masses,lesions,Nodules, Supple, Trachea in good position Cardiology: S1, S2 Abdominal: Bowel Sounds, Non Tender, Soft, Protuberent Musculoskeletal: full range of Motion, Gait Steady Neurological: CN 2-12 intact 03/31/19 14:37 Assessment: Continue ETOH/Cocaine rehabilitation 03/31/19 14:41 Plan: maintain safety, follow established plan of care.
[2019-03-31 15:01] LABS: RPR REACTIVE 1:2 (NONREACTIVE)
[2019-03-31] MEDS: THIAMINE HCL 100 MG TABLET (FP) PO SCH (21:36)
[2019-03-31] MEDS: traZODone HCL 50 MG TABLET (FP) PO SCH (21:37)
[2019-04-01] MEDS: PRENATAL VITAMINS W/ FOLIC ACID TABLET (FP) PO SCH (10:14)
[2019-04-01] MEDS: LISINOPRIL 5 MG TABLET (FP) PO SCH (10:14)
[2019-04-01 12:26] LABS: TREPONEMA ANTIBODY REACTIVE (NONREACTIVE)
[2019-04-01] MEDS: traZODone HCL 50 MG TABLET (FP) PO SCH (21:46)
[2019-04-01] MEDS: THIAMINE HCL 100 MG TABLET (FP) PO SCH (21:46)
[2019-04-02] MEDS: LISINOPRIL 5 MG TABLET (FP) PO SCH (10:13)
[2019-04-02] MEDS: PRENATAL VITAMINS W/ FOLIC ACID TABLET (FP) PO SCH (10:13)
[2019-04-02] MEDS: traZODone HCL 50 MG TABLET (FP) PO SCH (22:06)
[2019-04-02] MEDS: THIAMINE HCL 100 MG TABLET (FP) PO SCH (22:06)
[2019-04-03] MEDS: LISINOPRIL 5 MG TABLET (FP) PO SCH (09:42)
[2019-04-03] MEDS: PRENATAL VITAMINS W/ FOLIC ACID TABLET (FP) PO SCH (09:42)
[2019-04-03] MEDS: THIAMINE HCL 100 MG TABLET (FP) PO SCH (21:35)
[2019-04-03] MEDS: traZODone HCL 50 MG TABLET (FP) PO SCH (21:35)
[2019-04-04] MEDS: PRENATAL VITAMINS W/ FOLIC ACID TABLET (FP) PO SCH (10:20)
[2019-04-04] MEDS: LISINOPRIL 5 MG TABLET (FP) PO SCH (10:20)
[2019-04-04] MEDS ORDERED: PT OWN MED DRAWER 7, Y5N ONE (11:50)
--- NOTE | 2019-04-04 11:52 | PN ---
[facility] Progress Note Note: Patient has own medication in property which was reviewed. She is currently prescribed Metformin 500mg BID with last prescription 03/08/2019 filled at [facility]. Same ordered. Vital Signs Temperature 97.4 F L 04/04/19 06:30 Pulse Rate 80 04/04/19 09:16 Respiratory Rate 16 04/04/19 06:30 Blood Pressure 111/70 04/04/19 09:16 O2 Sat by Pulse Oximetry (%) Laboratory Tests 03/30/19 03/31/19 03/31/19 20:47 06:28 08:15 WBC RBC Hgb Hct MCV MCH MCHC RDW Plt Count MPV Sodium Potassium Chloride Carbon Dioxide Anion Gap BUN Creatinine Est GFR (CKD-EPI)AfAm Est GFR (CKD-EPI)NonAf POC Glucometer 100 130 Random Glucose Calcium Total Bilirubin AST ALT Alkaline Phosphatase Total Protein Albumin Urine Color Yellow Urine Appearance Cloudy Urine pH 7.5 D Ur Specific [place] 1.019 Urine Protein Negative Urine Glucose (UA) Negative Urine Ketones Negative Urine Blood Negative Urine Nitrite Negative Urine Bilirubin Negative Urine Urobilinogen 1.0 Ur Leukocyte Esterase 3+ H Urine WBC (Auto) 11 Urine RBC (Auto) 1 Urine Casts (Auto) 3 U Epithel Cells (Auto) 17.6 Urine Bacteria (Auto) 146.1 RPR Titer T.pallidum Ab ([facility]) 03/31/19 03/31/19 03/31/19 09:20 09:20 09:20 WBC 5.4 RBC 4.01 Hgb 12.7 Hct 37.7 MCV 94.0 MCH 31.5 MCHC 33.6 RDW 13.2 Plt Count 228 MPV 9.2 Sodium 139 Potassium 4.2 Chloride 106 Carbon Dioxide 26 Anion Gap 7 L BUN 17.2 Creatinine 1.0 Est GFR (CKD-EPI)AfAm 72.93 Est GFR (CKD-EPI)NonAf 62.93 POC Glucometer Random Glucose 106 Calcium 9.3 Total Bilirubin 0.6 AST 17 ALT 34 Alkaline Phosphatase 95 Total Protein 7.6 Albumin 3.8 Urine Color Urine Appearance Urine pH Ur Specific [place] Urine Protein Urine Glucose (UA) Urine Ketones Urine Blood Urine Nitrite Urine Bilirubin Urine Urobilinogen Ur Leukocyte Esterase Urine WBC (Auto) Urine RBC (Auto) Urine Casts (Auto) U Epithel Cells (Auto) Urine Bacteria (Auto) RPR Titer Reactive 1:2 H D T.pallidum Ab (A) Reactive 04/01/19 04/02/19 04/03/19 17:30 06:42 06:54 WBC RBC Hgb Hct MCV MCH MCHC RDW Plt Count MPV Sodium Potassium Chloride Carbon Dioxide Anion Gap BUN Creatinine Est GFR (CKD-EPI)AfAm Est GFR (CKD-EPI)NonAf POC Glucometer 129 97 99 Random Glucose Calcium Total Bilirubin AST ALT Alkaline Phosphatase Total Protein Albumin Urine Color Urine Appearance Urine pH Ur Specific [place] Urine Protein Urine Glucose (UA) Urine Ketones Urine Blood Urine Nitrite Urine Bilirubin Urine Urobilinogen Ur Leukocyte Esterase Urine WBC (Auto) Urine RBC (Auto) Urine Casts (Auto) U Epithel Cells (Auto) Urine Bacteria (Auto) RPR Titer T.pallidum Ab (A) 04/04/19 06:40 WBC RBC Hgb Hct MCV MCH MCHC RDW Plt Count MPV Sodium Potassium Chloride Carbon Dioxide Anion Gap BUN Creatinine Est GFR (CKD-EPI)AfAm Est GFR (CKD-EPI)NonAf POC Glucometer 97 Random Glucose Calcium Total Bilirubin AST ALT Alkaline Phosphatase Total Protein Albumin Urine Color Urine Appearance Urine pH Ur Specific [place] Urine Protein Urine Glucose (UA) Urine Ketones Urine Blood Urine Nitrite Urine Bilirubin Urine Urobilinogen Ur Leukocyte Esterase Urine WBC (Auto) Urine RBC (Auto) Urine Casts (Auto) U Epithel Cells (Auto) Urine Bacteria (Auto) RPR Titer T.pallidum Ab (A)
[2019-04-04] MEDS: metFORMIN HCL 500 MG TABLET (FP) PO SCH (17:26)
[2019-04-04] MEDS: THIAMINE HCL 100 MG TABLET (FP) PO SCH (21:16)
[2019-04-04] MEDS: traZODone HCL 50 MG TABLET (FP) PO SCH (21:16)
[2019-04-05] MEDS: metFORMIN HCL 500 MG TABLET (FP) PO SCH (06:53)
[2019-04-05] MEDS: LISINOPRIL 5 MG TABLET (FP) PO SCH (10:26)
[2019-04-05] MEDS: PRENATAL VITAMINS W/ FOLIC ACID TABLET (FP) PO SCH (10:26)
[2019-04-05] MEDS: traZODone HCL 50 MG TABLET (FP) PO SCH (23:01)
[2019-04-05] MEDS: THIAMINE HCL 100 MG TABLET (FP) PO SCH (23:01)
[2019-04-05] MEDS: MELATONIN 5 MG TABLETS PO PRN (23:08)
[2019-04-06] MEDS: metFORMIN HCL 500 MG TABLET (FP) PO SCH (06:39)
[2019-04-06] MEDS: PRENATAL VITAMINS W/ FOLIC ACID TABLET (FP) PO SCH (10:11)
[2019-04-06] MEDS: LISINOPRIL 5 MG TABLET (FP) PO SCH (10:12)
--- NOTE | 2019-04-06 15:05 | PREP.REFER ---
HIV PrEP/PEP - PrEP HIV Risk Assessment When was your last HIV test?: On PrEP Are you concerned about any sexual encounters past 6 months?: No Have you had a STI in the last 6 months?: Yes Have you shared needles or other equipment?: No Are you interested in daily medication to help prevent HIV?: No (Presently on PrEP) Recommendation: Consider PrEP referral
[2019-04-06] MEDS: THIAMINE HCL 100 MG TABLET (FP) PO SCH (21:37)
[2019-04-06] MEDS: traZODone HCL 50 MG TABLET (FP) PO SCH (21:38)
[2019-04-07] MEDS: metFORMIN HCL 500 MG TABLET (FP) PO SCH (06:30)
[2019-04-07] MEDS: LISINOPRIL 5 MG TABLET (FP) PO SCH (10:12)
[2019-04-07] MEDS: PRENATAL VITAMINS W/ FOLIC ACID TABLET (FP) PO SCH (10:12)
[2019-04-07] MEDS: traZODone HCL 50 MG TABLET (FP) PO SCH (21:32)
[2019-04-07] MEDS: MELATONIN 5 MG TABLETS PO PRN (21:32)
[2019-04-07] MEDS: THIAMINE HCL 100 MG TABLET (FP) PO SCH (21:32)
[2019-04-08] MEDS: metFORMIN HCL 500 MG TABLET (FP) PO SCH (06:59)
[2019-04-08] MEDS: LISINOPRIL 5 MG TABLET (FP) PO SCH (09:32)
[2019-04-08] MEDS: PRENATAL VITAMINS W/ FOLIC ACID TABLET (FP) PO SCH (09:32)
[2019-04-08] MEDS: MELATONIN 5 MG TABLETS PO PRN (22:36)
[2019-04-08] MEDS: traZODone HCL 50 MG TABLET (FP) PO SCH (22:36)
[2019-04-08] MEDS: THIAMINE HCL 100 MG TABLET (FP) PO SCH (22:36)
[2019-04-09] MEDS: metFORMIN HCL 500 MG TABLET (FP) PO SCH (06:54)
[2019-04-09] MEDS: LISINOPRIL 5 MG TABLET (FP) PO SCH (09:42)
[2019-04-09] MEDS: PRENATAL VITAMINS W/ FOLIC ACID TABLET (FP) PO SCH (09:42)
[2019-04-09] MEDS: THIAMINE HCL 100 MG TABLET (FP) PO SCH (21:10)
[2019-04-09] MEDS: traZODone HCL 50 MG TABLET (FP) PO SCH (21:10)
[2019-04-10] MEDS: metFORMIN HCL 500 MG TABLET (FP) PO SCH (06:53)
[2019-04-10] MEDS: LISINOPRIL 5 MG TABLET (FP) PO SCH (10:39)
[2019-04-10] MEDS: PRENATAL VITAMINS W/ FOLIC ACID TABLET (FP) PO SCH (10:39)
[2019-04-10] MEDS: THIAMINE HCL 100 MG TABLET (FP) PO SCH (21:34)
[2019-04-10] MEDS: traZODone HCL 50 MG TABLET (FP) PO SCH (21:34)
[2019-04-10] MEDS: IBUPROFEN 400 MG TABLET (FP) PO PRN (23:14)
[2019-04-11] MEDS: metFORMIN HCL 500 MG TABLET (FP) PO SCH (06:25)
[2019-04-11] MEDS: IBUPROFEN 400 MG TABLET (FP) PO PRN ×3 (06:26→18:26)
[2019-04-11] MEDS: PRENATAL VITAMINS W/ FOLIC ACID TABLET (FP) PO SCH (10:35)
[2019-04-11] MEDS: LISINOPRIL 5 MG TABLET (FP) PO SCH (10:36)
[2019-04-11] MEDS: ACETAMINOPHEN 325 MG TABLET (FP) PO PRN ×3 (10:37→21:21)
[2019-04-11] MEDS: traZODone HCL 50 MG TABLET (FP) PO SCH (21:21)
[2019-04-11] MEDS: THIAMINE HCL 100 MG TABLET (FP) PO SCH (21:21)
[2019-04-11] MEDS: MELATONIN 5 MG TABLETS PO PRN (21:22)
[2019-04-12] MEDS: IBUPROFEN 400 MG TABLET (FP) PO PRN ×4 (00:23→18:29)
[2019-04-12] MEDS: metFORMIN HCL 500 MG TABLET (FP) PO SCH (06:29)
--- NOTE | 2019-04-12 07:37 | PN ---
[facility] Progress Note Note: C/o swelling and pain to (R) upper mouth and cheek area. Increased swelling of (R) cheek and areas around (R) frontal broken molar w/ tenderness upon palpation. Rear molar w/ chips teeth. Vital Signs - 24 hr 04/11/19 04/12/19 04/12/19 09:13 03:21 06:20 Temperature 98.9 F Pulse Rate 93 H 81 Respiratory 18 16 Rate Blood Pressure 149/68 152/91 Plan: Saline gargle QID and prn Amoxicillin 750 mg PO BID x 5 days
[2019-04-12] MEDS ORDERED: AMOXICILLIN 250 MG CAPSULE PO SCH (10:00)
[2019-04-12] MEDS: AMOXICILLIN - 500 MG, AMOXICILLIN - 250 MG PO SCH ×2 (10:15→21:08)
[2019-04-12] MEDS: LISINOPRIL 5 MG TABLET (FP) PO SCH (10:16)
[2019-04-12] MEDS: PRENATAL VITAMINS W/ FOLIC ACID TABLET (FP) PO SCH (10:16)
[2019-04-12] MEDS: ACETAMINOPHEN 325 MG TABLET (FP) PO PRN ×2 (10:16→21:09)
[2019-04-12] MEDS ORDERED: PT OWN MED DRAWER 7, Y5N ONE ×3 (15:13→19:31)
[2019-04-12] MEDS: THIAMINE HCL 100 MG TABLET (FP) PO SCH (21:08)
[2019-04-12] MEDS: traZODone HCL 50 MG TABLET (FP) PO SCH (21:09)
[2019-04-12] MEDS: MELATONIN 5 MG TABLETS PO PRN (21:09)
[2019-04-13] MEDS: IBUPROFEN 400 MG TABLET (FP) PO PRN (02:45)
[2019-04-13] MEDS: ACETAMINOPHEN 325 MG TABLET (FP) PO PRN (06:42)
[2019-04-13] MEDS: metFORMIN HCL 500 MG TABLET (FP) PO SCH (06:42)
[2019-04-13] MEDS ORDERED: PT OWN MED DRAWER 7, Y5N ONE (08:52)
[2019-04-13] MEDS ORDERED: BENZOCAINE 20 % GEL TUBE MM PRN (10:18)
--- NOTE | 2019-04-13 10:22 | PN ---
[facility] Progress Note (SOAP) Subjective: Patient with c/o toothache, right side face swelling. Started on Amoxicillin. She continues to be in pain. Objective: 04/13/19 10:20 Vital Signs Period Temp Pulse Resp BP Sys/Reza Pulse Ox Last 24 Hr 98.0 F 91-94 16-18 122-124/65-74 General: appears to be in pain HEENTM: Normocephalic, right jaw swelling, gum swelling Neck: supple Assessment: Toothache; gum infection 04/13/19 10:21 Plan: Continue Amoxicillin Start magic mouthwash Start anbesol Increase Motrin dose Advise dental care upon discharge.
[2019-04-13] MEDS: AMOXICILLIN - 500 MG, AMOXICILLIN - 250 MG PO SCH ×2 (10:25→21:10)
[2019-04-13] MEDS: PRENATAL VITAMINS W/ FOLIC ACID TABLET (FP) PO SCH (10:25)
[2019-04-13] MEDS: MAG HYDROX/ALH/SMC/DPHA/LIDO 240 ML MOUTHWASH MM SCH ×2 (13:06→18:30)
[2019-04-13] MEDS: IBUPROFEN 600 MG TABLET (FP) PO PRN ×2 (13:07→21:08)
[2019-04-13] MEDS: MELATONIN 5 MG TABLETS PO PRN (21:08)
[2019-04-13] MEDS: THIAMINE HCL 100 MG TABLET (FP) PO SCH (21:08)
[2019-04-13] MEDS: traZODone HCL 50 MG TABLET (FP) PO SCH (21:08)
[2019-04-14] MEDS: MAG HYDROX/ALH/SMC/DPHA/LIDO 240 ML MOUTHWASH MM SCH ×4 (00:59→21:25)
[2019-04-14] MEDS: IBUPROFEN 600 MG TABLET (FP) PO PRN ×3 (01:31→21:27)
[2019-04-14] MEDS: metFORMIN HCL 500 MG TABLET (FP) PO SCH (06:47)
[2019-04-14] MEDS ORDERED: PT OWN MED DRAWER 7, Y5N ONE (08:25)
[2019-04-14] MEDS: PRENATAL VITAMINS W/ FOLIC ACID TABLET (FP) PO SCH (09:50)
[2019-04-14] MEDS: AMOXICILLIN - 500 MG, AMOXICILLIN - 250 MG PO SCH ×2 (09:50→21:25)
[2019-04-14] MEDS: THIAMINE HCL 100 MG TABLET (FP) PO SCH (21:24)
[2019-04-14] MEDS: MELATONIN 5 MG TABLETS PO PRN (21:25)
[2019-04-14] MEDS: traZODone HCL 50 MG TABLET (FP) PO SCH (21:26)
[2019-04-15] MEDS: MAG HYDROX/ALH/SMC/DPHA/LIDO 240 ML MOUTHWASH MM SCH ×4 (00:15→18:20)
[2019-04-15] MEDS: metFORMIN HCL 500 MG TABLET (FP) PO SCH (06:55)
[2019-04-15] MEDS ORDERED: PT OWN MED DRAWER 7, Y5N ONE ×3 (09:18→14:17)
[2019-04-15] MEDS: PRENATAL VITAMINS W/ FOLIC ACID TABLET (FP) PO SCH (10:26)
[2019-04-15] MEDS: AMOXICILLIN - 500 MG, AMOXICILLIN - 250 MG PO SCH ×2 (10:28→21:20)
[2019-04-15] MEDS: IBUPROFEN 600 MG TABLET (FP) PO PRN ×2 (10:29→21:19)
[2019-04-15] MEDS: traZODone HCL 50 MG TABLET (FP) PO SCH (21:19)
[2019-04-15] MEDS: THIAMINE HCL 100 MG TABLET (FP) PO SCH (21:19)
[2019-04-16] MEDS: MAG HYDROX/ALH/SMC/DPHA/LIDO 240 ML MOUTHWASH MM SCH ×4 (00:50→17:46)
[2019-04-16] MEDS: metFORMIN HCL 500 MG TABLET (FP) PO SCH (06:52)
[2019-04-16] MEDS: PRENATAL VITAMINS W/ FOLIC ACID TABLET (FP) PO SCH (10:36)
[2019-04-16] MEDS: AMOXICILLIN - 500 MG, AMOXICILLIN - 250 MG PO SCH ×2 (10:36→21:19)
[2019-04-16] MEDS ORDERED: PT OWN MED DRAWER 7, Y5N ONE (20:34)
[2019-04-16] MEDS: THIAMINE HCL 100 MG TABLET (FP) PO SCH (21:19)
[2019-04-16] MEDS: traZODone HCL 50 MG TABLET (FP) PO SCH (21:19)
[2019-04-16] MEDS: MELATONIN 5 MG TABLETS PO PRN (21:19)
[2019-04-17] MEDS: MAG HYDROX/ALH/SMC/DPHA/LIDO 240 ML MOUTHWASH MM SCH ×5 (00:44→23:38)
[2019-04-17] MEDS: metFORMIN HCL 500 MG TABLET (FP) PO SCH (06:39)
[2019-04-17] MEDS: PRENATAL VITAMINS W/ FOLIC ACID TABLET (FP) PO SCH (10:20)
[2019-04-17] MEDS: traZODone HCL 50 MG TABLET (FP) PO SCH (21:16)
[2019-04-17] MEDS: THIAMINE HCL 100 MG TABLET (FP) PO SCH (21:16)
[2019-04-17] MEDS: MELATONIN 5 MG TABLETS PO PRN (21:17)
[2019-04-18] MEDS: MAG HYDROX/ALH/SMC/DPHA/LIDO 240 ML MOUTHWASH MM SCH (06:56)
[2019-04-18] MEDS: metFORMIN HCL 500 MG TABLET (FP) PO SCH (06:57)
[2019-04-18] MEDS: PRENATAL VITAMINS W/ FOLIC ACID TABLET (FP) PO SCH (09:43)
[2019-04-18] MEDS: traZODone HCL 50 MG TABLET (FP) PO SCH (22:45)
[2019-04-18] MEDS: THIAMINE HCL 100 MG TABLET (FP) PO SCH (22:46)
[2019-04-19] MEDS: metFORMIN HCL 500 MG TABLET (FP) PO SCH (06:57)
[2019-04-19] MEDS: PRENATAL VITAMINS W/ FOLIC ACID TABLET (FP) PO SCH (10:30)
[2019-04-19] MEDS: THIAMINE HCL 100 MG TABLET (FP) PO SCH (21:10)
[2019-04-19] MEDS: traZODone HCL 50 MG TABLET (FP) PO SCH (21:10)
[2019-04-19] MEDS: MELATONIN 5 MG TABLETS PO PRN (21:12)
[2019-04-20] MEDS: metFORMIN HCL 500 MG TABLET (FP) PO SCH (06:25)
[2019-04-20] MEDS: PRENATAL VITAMINS W/ FOLIC ACID TABLET (FP) PO SCH (09:59)
[2019-04-20] MEDS: traZODone HCL 50 MG TABLET (FP) PO SCH (21:38)
[2019-04-20] MEDS: MELATONIN 5 MG TABLETS PO PRN (21:38)
[2019-04-20] MEDS: THIAMINE HCL 100 MG TABLET (FP) PO SCH (21:38)
[2019-04-21] MEDS: metFORMIN HCL 500 MG TABLET (FP) PO SCH (06:46)
[2019-04-21] MEDS: PRENATAL VITAMINS W/ FOLIC ACID TABLET (FP) PO SCH (10:14)
[2019-04-21] MEDS: traZODone HCL 50 MG TABLET (FP) PO SCH (21:35)
[2019-04-21] MEDS: THIAMINE HCL 100 MG TABLET (FP) PO SCH (21:35)
[2019-04-21] MEDS: MELATONIN 5 MG TABLETS PO PRN (21:35)
[2019-04-22] MEDS: metFORMIN HCL 500 MG TABLET (FP) PO SCH (08:06)
[2019-04-22] MEDS: PRENATAL VITAMINS W/ FOLIC ACID TABLET (FP) PO SCH (09:15)
[2019-04-22] MEDS: MENTHOL/PHENOL 1 EACH UD MM PRN (11:22)
[2019-04-22] MEDS: MELATONIN 5 MG TABLETS PO PRN (21:41)
[2019-04-22] MEDS: THIAMINE HCL 100 MG TABLET (FP) PO SCH (21:41)
[2019-04-22] MEDS: traZODone HCL 50 MG TABLET (FP) PO SCH (21:41)
[2019-04-23] MEDS: metFORMIN HCL 500 MG TABLET (FP) PO SCH (06:47)
[2019-04-23] MEDS: PRENATAL VITAMINS W/ FOLIC ACID TABLET (FP) PO SCH (10:24)
[2019-04-23] MEDS: MELATONIN 5 MG TABLETS PO PRN (21:16)
[2019-04-23] MEDS: traZODone HCL 50 MG TABLET (FP) PO SCH (21:16)
[2019-04-23] MEDS: THIAMINE HCL 100 MG TABLET (FP) PO SCH (21:16)
[2019-04-24] MEDS: metFORMIN HCL 500 MG TABLET (FP) PO SCH (07:02)
[2019-04-24 07:26] VITALS: TEMP 97.4
[2019-04-24] MEDS: MENTHOL/PHENOL 1 EACH UD MM PRN (09:15)
[2019-04-24] MEDS: PRENATAL VITAMINS W/ FOLIC ACID TABLET (FP) PO SCH (10:24)
[2019-04-24] MEDS: traZODone HCL 50 MG TABLET (FP) PO SCH (21:04)
[2019-04-24] MEDS: THIAMINE HCL 100 MG TABLET (FP) PO SCH (21:04)
[2019-04-24] MEDS: MELATONIN 5 MG TABLETS PO PRN (21:04)
[2019-04-25] MEDS: metFORMIN HCL 500 MG TABLET (FP) PO SCH (06:36)
[2019-04-25] MEDS: PRENATAL VITAMINS W/ FOLIC ACID TABLET (FP) PO SCH (10:10)
--- NOTE | 2019-04-25 10:44 | PN ---
[facility] Progress Note Note: Patient is scheduled for discharge tomorrow. Script for 30 days of Trazadone 50 mg/hs will be electronically transmitted to [facility] at [address] [place] [address]
[2019-04-25 11:53] VITALS: BP 113/67; PULSE 77
--- NOTE | 2019-04-25 14:43 | DS ---
[facility] Rehab Discharge Summary - [facility] Rehab Discharge Summary Admission Date: 03/30/19 Discharge Date: 04/27/19 - History Present History: Alcohol dependence, Cannabis dependence, Cocaine dependence Additional Comments: Pt is a 58 y/o female with a hx of ELLY admitted to rehab and discharged today. Pt has been referred to aftercare to [facility] for follow up care. Pertinent Past History: HIV+ HTN DM - Discharge Physical Exam Vital Signs: Vital Signs Temperature 97.4 F L 04/25/19 06:20 Pulse Rate 77 04/25/19 08:51 Respiratory Rate 18 04/25/19 06:20 Blood Pressure 113/67 04/25/19 08:51 O2 Sat by Pulse Oximetry (%) Alert o x 3,denies s/h/i nad oob ambulating with steady gait cardiac:s1 s2,rrr lungs:cta, krishna. abdomen:soft,+bs,++fatty,nt extremities/skin:no edema;skin intact Pertinent Admission Physical Exam Findings: Laboratory Tests 03/30/19 03/31/19 03/31/19 20:47 06:28 08:15 WBC RBC Hgb Hct MCV MCH MCHC RDW Plt Count MPV Sodium Potassium Chloride Carbon Dioxide Anion Gap BUN Creatinine Est GFR (CKD-EPI)AfAm Est GFR (CKD-EPI)NonAf POC Glucometer 100 130 Random Glucose Calcium Total Bilirubin AST ALT Alkaline Phosphatase Total Protein Albumin Urine Color Yellow Urine Appearance Cloudy Urine pH 7.5 D Ur Specific Berne 1.019 Urine Protein Negative Urine Glucose (UA) Negative Urine Ketones Negative Urine Blood Negative Urine Nitrite Negative Urine Bilirubin Negative Urine Urobilinogen 1.0 Ur Leukocyte Esterase 3+ H Urine WBC (Auto) 11 Urine RBC (Auto) 1 Urine Casts (Auto) 3 U Epithel Cells (Auto) 17.6 Urine Bacteria (Auto) 146.1 RPR Titer T.pallidum Ab (A) 03/31/19 03/31/19 03/31/19 09:20 09:20 09:20 WBC 5.4 RBC 4.01 Hgb 12.7 Hct 37.7 MCV 94.0 MCH 31.5 MCHC 33.6 RDW 13.2 Plt Count 228 MPV 9.2 Sodium 139 Potassium 4.2 Chloride 106 Carbon Dioxide 26 Anion Gap 7 L BUN 17.2 Creatinine 1.0 Est GFR (CKD-EPI)AfAm 72.93 Est GFR (CKD-EPI)NonAf 62.93 POC Glucometer Random Glucose 106 Calcium 9.3 Total Bilirubin 0.6 AST 17 ALT 34 Alkaline Phosphatase 95 Total Protein 7.6 Albumin 3.8 Urine Color Urine Appearance Urine pH Ur Specific Ber[place] Urine Protein Urine Glucose (UA) Urine Ketones Urine Blood Urine Nitrite Urine Bilirubin Urine Urobilinogen Ur Leukocyte Esterase Urine WBC (Auto) Urine RBC (Auto) Urine Casts (Auto) U Epithel Cells (Auto) Urine Bacteria (Auto) RPR Titer Reactive 1:2 H D T.pallidum Ab ([facility]) Reactive 04/01/19 04/02/19 04/03/19 17:30 06:42 06:54 WBC RBC Hgb Hct MCV MCH MCHC RDW Plt Count MPV Sodium Potassium Chloride Carbon Dioxide Anion Gap BUN Creatinine Est GFR (CKD-EPI)AfAm Est GFR (CKD-EPI)NonAf POC Glucometer 129 97 99 Random Glucose Calcium Total Bilirubin AST ALT Alkaline Phosphatase Total Protein Albumin Urine Color Urine Appearance Urine pH Ur Specific Ber[place] Urine Protein Urine Glucose (UA) Urine Ketones Urine Blood Urine Nitrite Urine Bilirubin Urine Urobilinogen Ur Leukocyte Esterase Urine WBC (Auto) Urine RBC (Auto) Urine Casts (Auto) U Epithel Cells (Auto) Urine Bacteria (Auto) RPR Titer T.pallidum Ab ([facility]) 04/04/19 04/05/19 04/06/19 06:40 06:52 06:39 WBC RBC Hgb Hct MCV MCH MCHC RDW Plt Count MPV Sodium Potassium Chloride Carbon Dioxide Anion Gap BUN Creatinine Est GFR (CKD-EPI)AfAm Est GFR (CKD-EPI)NonAf POC Glucometer 97 96 116 Random Glucose Calcium Total Bilirubin AST ALT Alkaline Phosphatase Total Protein Albumin Urine Color Urine Appearance Urine pH Ur Specific Ber[place] Urine Protein Urine Glucose (UA) Urine Ketones Urine Blood Urine Nitrite Urine Bilirubin Urine Urobilinogen Ur Leukocyte Esterase Urine WBC (Auto) Urine RBC (Auto) Urine Casts (Auto) U Epithel Cells (Auto) Urine Bacteria (Auto) RPR Titer T.pallidum Ab ([facility]) 04/07/19 04/08/19 04/09/19 06:27 06:14 06:53 WBC RBC Hgb Hct MCV MCH MCHC RDW Plt Count MPV Sodium Potassium Chloride Carbon Dioxide Anion Gap BUN Creatinine Est GFR (CKD-EPI)AfAm Est GFR (CKD-EPI)NonAf POC Glucometer 97 92 101 Random Glucose Calcium Total Bilirubin AST ALT Alkaline Phosphatase Total Protein Albumin Urine Color Urine Appearance Urine pH Ur Specific [place] Urine Protein Urine Glucose (UA) Urine Ketones Urine Blood Urine Nitrite Urine Bilirubin Urine Urobilinogen Ur Leukocyte Esterase Urine WBC (Auto) Urine RBC (Auto) Urine Casts (Auto) U Epithel Cells (Auto) Urine Bacteria (Auto) RPR Titer T.pallidum Ab ([facility]) 04/10/19 04/11/19 04/12/19 06:12 06:25 06:29 WBC RBC Hgb Hct MCV MCH MCHC RDW Plt Count MPV Sodium Potassium Chloride Carbon Dioxide Anion Gap BUN Creatinine Est GFR (CKD-EPI)AfAm Est GFR (CKD-EPI)NonAf POC Glucometer 90 98 110 Random Glucose Calcium Total Bilirubin AST ALT Alkaline Phosphatase Total Protein Albumin Urine Color Urine Appearance Urine pH Ur Specific [place] Urine Protein Urine Glucose (UA) Urine Ketones Urine Blood Urine Nitrite Urine Bilirubin Urine Urobilinogen Ur Leukocyte Esterase Urine WBC (Auto) Urine RBC (Auto) Urine Casts (Auto) U Epithel Cells (Auto) Urine Bacteria (Auto) RPR Titer T.pallidum Ab ([facility]) 04/13/19 04/14/19 04/15/19 06:41 06:47 06:53 WBC RBC Hgb Hct MCV MCH MCHC RDW Plt Count MPV Sodium Potassium Chloride Carbon Dioxide Anion Gap BUN Creatinine Est GFR (CKD-EPI)AfAm Est GFR (CKD-EPI)NonAf POC Glucometer 105 97 107 Random Glucose Calcium Total Bilirubin AST ALT Alkaline Phosphatase Total Protein Albumin Urine Color Urine Appearance Urine pH Ur Specific [place] Urine Protein Urine Glucose (UA) Urine Ketones Urine Blood Urine Nitrite Urine Bilirubin Urine Urobilinogen Ur Leukocyte Esterase Urine WBC (Auto) Urine RBC (Auto) Urine Casts (Auto) U Epithel Cells (Auto) Urine Bacteria (Auto) RPR Titer T.pallidum Ab ([facility]) 04/16/19 04/17/19 04/18/19 06:50 06:39 06:57 WBC RBC Hgb Hct MCV MCH MCHC RDW Plt Count MPV Sodium Potassium Chloride Carbon Dioxide Anion Gap BUN Creatinine Est GFR (CKD-EPI)AfAm Est GFR (CKD-EPI)NonAf POC Glucometer 102 106 98 Random Glucose Calcium Total Bilirubin AST ALT Alkaline Phosphatase Total Protein Albumin Urine Color Urine Appearance Urine pH Ur Specific [place] Urine Protein Urine Glucose (UA) Urine Ketones Urine Blood Urine Nitrite Urine Bilirubin Urine Urobilinogen Ur Leukocyte Esterase Urine WBC (Auto) Urine RBC (Auto) Urine Casts (Auto) U Epithel Cells (Auto) Urine Bacteria (Auto) RPR Titer T.pallidum Ab (A) 04/20/19 04/21/19 04/22/19 06:24 06:45 06:34 WBC RBC Hgb Hct MCV MCH MCHC RDW Plt Count MPV Sodium Potassium Chloride Carbon Dioxide Anion Gap BUN Creatinine Est GFR (CKD-EPI)AfAm Est GFR (CKD-EPI)NonAf POC Glucometer 112 117 116 Random Glucose Calcium Total Bilirubin AST ALT Alkaline Phosphatase Total Protein Albumin Urine Color Urine Appearance Urine pH Ur Specific [place] Urine Protein Urine Glucose (UA) Urine Ketones Urine Blood Urine Nitrite Urine Bilirubin Urine Urobilinogen Ur Leukocyte Esterase Urine WBC (Auto) Urine RBC (Auto) Urine Casts (Auto) U Epithel Cells (Auto) Urine Bacteria (Auto) RPR Titer T.pallidum Ab ([facility]) 04/23/19 04/24/19 04/25/19 06:46 07:00 06:35 WBC RBC Hgb Hct MCV MCH MCHC RDW Plt Count MPV Sodium Potassium Chloride Carbon Dioxide Anion Gap BUN Creatinine Est GFR (CKD-EPI)AfAm Est GFR (CKD-EPI)NonAf POC Glucometer 116 111 147 Random Glucose Calcium Total Bilirubin AST ALT Alkaline Phosphatase Total Protein Albumin Urine Color Urine Appearance Urine pH Ur Specific [place] Urine Protein Urine Glucose (UA) Urine Ketones Urine Blood Urine Nitrite Urine Bilirubin Urine Urobilinogen Ur Leukocyte Esterase Urine WBC (Auto) Urine RBC (Auto) Urine Casts (Auto) U Epithel Cells (Auto) Urine Bacteria (Auto) RPR Titer T.pallidum Ab (A) - Treatment Discharge Condition: Discharge condition good Hospital Course: Rehabilitated safely [facility] aftercare referral accepted attended groups and individual sessions while in rehab - Medication Discharge Medications: Ambulatory Orders Gabapentin [Neurontin] 100 mg PO DAILY 04/21/12 metFORMIN HCL [Glucophage -] 500 mg PO BID 09/26/16 Emtricitab/Rilpivirine/Tenofov [Complera Tablet -] 1 each PO DAILY@0800 tablet 09/29/16 Lisinopril [Zestril] 2.5 mg PO DAILY 03/31/19 traZODone HCL [Desyrel -] 50 mg PO HS #30 tablet 04/25/19 - Medication-Assisted Treatment (MAT) Medication-Assisted Treatment (MAT): No - Discharge Instructions Diet, activity, other medical instructions: Diet:DENILSON/NCS Activity: oob ad marisabel Other medical instructions:follow up with [facility] aftercare referral as recommended. Follow up with primary care provider within 1 week after discharge. - Diagnosis (1) Alcohol dependence, uncomplicated Status: Chronic (2) HIV (human immunodeficiency virus infection) Status: Chronic Qualifiers: HIV symptom status: unspecified Qualified Code(s): B20 - Human immunodeficiency virus [HIV] disease (3) HTN (hypertension) Status: Chronic Qualifiers: Hypertension type: essential hypertension Qualified Code(s): I10 - Essential (primary) hypertension (4) Cannabis dependence Status: Chronic (5) DM Diabetes mellitus type 2 Status: Chronic (6) Nicotine dependence Status: Chronic Qualifiers: Nicotine product type: cigarettes Substance use status: uncomplicated Qualified Code(s): F17.210 - Nicotine dependence, cigarettes, uncomplicated - Follow-up Referral Minutes to complete discharge: 25 - AMA Did Patient Leave Against Medical Advice: No Additional Comments: Pt reports she goes to [facility] on [address] for primary Care( does not remember the name of her doctor at this time).
[2019-04-25] MEDS ORDERED: PT OWN MED DRAWER 7, Y5N ONE (15:07)
== END 2019-04-25 15:10 | disposition home or self-care (01) | DRG 772 ==
LOC: YASAS 17:15 → Y3E 22:12
PROVIDERS: ADMIT Allergy & Immunology; ATTEND Allergy & Immunology
PROC: HZ42ZZZ Group Counseling for Substance Abuse Treatment, Cognitive-Behavioral (ICD-10-PCS; principal; 2019-03-30)
DX: F10.20 Alcohol dependence, uncomplicated (principal); F14.20 Cocaine dependence, uncomplicated; F17.210 Nicotine dependence, cigarettes, uncomplicated; F19.282 Other psychoactive substance dependence with psychoactive substance-induced sleep disorder; F19.24 Other psychoactive substance dependence with psychoactive substance-induced mood disorder; F43.10 Post-traumatic stress disorder, unspecified; Z21 Asymptomatic human immunodeficiency virus [HIV] infection status; I10 Essential (primary) hypertension; E11.9 Type 2 diabetes mellitus without complications; B18.2 Chronic viral hepatitis C; K08.9 Disorder of teeth and supporting structures, unspecified; K04.7 Periapical abscess without sinus; Z62.810 Personal history of physical and sexual abuse in childhood; Z56.0 Unemployment, unspecified; Z59.0 Homelessness; Z91.14 Patient's other noncompliance with medication regimen; Z91.010 Allergy to peanuts
CPT/HCPCS: 36415; 80053; 81003; 82962; 85027; 86593; 86780; 93005; 93010